=== PATIENT | female | born 1955 | race African-American/Black ===

== ENCOUNTER 2023-06-28 14:53 | Emergency (ER) | payer MEDICARE ==
[~2023-06-28] VITALS: Ht 160 cm; Wt 66.0 kg
[2023-06-28 14:56] VITALS: O2SAT 99
[2023-06-28] MEDS: TETRACAINE 0.5% OPHTH DROPS 4ML BOTHEYE ONE (15:44)
[2023-06-28] MEDS: FLUORESCEIN SODIUM 1MG/STRIP BOTHEYE ONE (15:44)
[2023-06-28] MEDS ORDERED: D-ME473S50 PO (15:58)
[2023-06-28] MEDS ORDERED: ERYT1OIN6 EACHEYE (15:58)
[2023-06-28 16:31] VITALS: BP 119/55; PULSE 61; RESP 17; TEMP 98.1
== END 2023-06-28 16:33 | disposition home or self-care (01) ==
LOC: ER 14:53
DX: H10.9 Unspecified conjunctivitis (principal); R05.9 Cough, unspecified; E11.9 Type 2 diabetes mellitus without complications
CPT/HCPCS: 99283

== ENCOUNTER 2024-03-08 13:16 | Emergency (ER) | payer MEDICARE ==
[~2024-03-08] VITALS: Ht 160 cm; Wt 70.0 kg
[~2024-03-08 13:16] MED LIST: D-ME473S50 PO; ERYT1OIN6 EACHEYE
[2024-03-08 13:18] VITALS: O2SAT 97
[2024-03-08 13:23] VITALS: BP 142/58; PULSE 71; RESP 16; TEMP 98.4; O2SAT 100
== END 2024-03-08 13:47 | disposition home or self-care (01) ==
LOC: ER 13:27
DX: H11.31 Conjunctival hemorrhage, right eye (principal); J06.9 Acute upper respiratory infection, unspecified; I10 Essential (primary) hypertension; E11.9 Type 2 diabetes mellitus without complications; Z88.1 Allergy status to other antibiotic agents
CPT/HCPCS: 99281

== ENCOUNTER 2024-09-04 11:52 | Emergency (ER) | payer MEDICARE ==
[~2024-09-04] VITALS: Ht 160 cm; Wt 67.0 kg
[~2024-09-04 11:52] MED LIST changes: +GLIP10TA2 PO; +LOSA25TA26 PO
[2024-09-04 11:58] VITALS: O2SAT 99
[2024-09-04 13:18] VITALS: BP 125/53; PULSE 67; RESP 16; TEMP 36.9; O2SAT 99
== END 2024-09-04 13:19 | disposition home or self-care (01) ==
LOC: ER 11:52
DX: R20.0 Anesthesia of skin (principal); E11.9 Type 2 diabetes mellitus without complications; I10 Essential (primary) hypertension; Z86.73 Personal history of transient ischemic attack (TIA), and cerebral infarction without residual deficits; Z79.899 Other long term (current) drug therapy; Z88.1 Allergy status to other antibiotic agents; Z98.890 Other specified postprocedural states
CPT/HCPCS: 99281